=== PATIENT | male | born 1975 | race Two or more races ===

== ENCOUNTER 2021-06-10 10:00 | Emergency (ER) | payer OTHER ==
[~2021-06-10] VITALS: Ht 180.3 cm; Wt 72.6 kg
[2021-06-10] MEDS ORDERED: NORFLEX100MG PO (12:54)
[2021-06-10] MEDS ORDERED: KETO10TA2 PO (12:54)
== END 2021-06-10 14:55 | disposition home or self-care (01) ==
LOC: ER 10:00
DX: M54.5 Low back pain (principal)

== ENCOUNTER 2024-05-04 11:18 | Emergency (ER) | payer OTHER ==
[~2024-05-04] VITALS: Ht 180.3 cm; Wt 68.0 kg
[~2024-05-04 11:18] MED LIST: KETO10TA2 PO; NORFLEX100MG PO
[2024-05-04] MEDS ORDERED: KETOROLAC TROMETHAMINE 60 MG VIAL IM ONE (12:00)
[2024-05-04] MEDS ORDERED: ORPHENADRINE CITRATE 30 MG/ML AMPUL IM ONE (12:00)
== END 2024-05-04 13:34 | disposition home or self-care (01) ==
LOC: ER 11:19
DX: M62.838 Other muscle spasm (principal)